=== PATIENT | female | born 1990 | race Caucasian/White ===

== ENCOUNTER 2018-04-26 15:14 | Emergency (ER) | payer OTHER ==
[2018-04-26 16:27] LABS: Urine Blood 1+ (NEG); Urine Glucose NEGATIVE (NEG); Urine Protein NEGATIVE (NEG); Urine Specific Gravity <1.005 (1.005-1.030)
[2018-04-26] MEDS ORDERED: DEXAMETHASONE 10 MG/ML VIAL ONE (17:11)
[2018-04-26] MEDS ORDERED: CLINDAMYCIN 600MG/D5W 600 MG/50 ML BAG IV ONE (17:12)
[2018-04-26] MEDS ORDERED: FENTANYL CITR 100 MCG/2 ML ONE (17:12)
[2018-04-26] MEDS ORDERED: NA CHLORIDE 0.9% 1,000 ML ONE (17:12)
--- NOTE | 2018-04-26 17:37 | RAD REPORT ---
EXAM DESCRIPTION: CT - Soft Tissue Neck W/Contr - 04/26/2018 5:05 pm CLINICAL HISTORY: Neck pain, difficulty swallowing, suspected peritonsillar abscess TECHNIQUE: During dynamic enhancement using 100 milliliters nonionic IV contrast, axial 5 millimeter thick images of the neck were obtained. All CT scans are performed using dose optimization technique as appropriate and may include automated exposure control or mA/KV adjustment according to patient size. FINDINGS: Intracranial portion the examination is unremarkable. Paranasal sinuses are clear. No glob e or orbital content abnormality. Mastoid air cells and middle ears are clear. Left tonsil is grossly abnormal and enlarged at 2.5-3 cm in diameter. In the post oral lateral aspect of the enlarged left tonsil there is a 2.2 x 2.0 x 1.5 centimeter low-density mass that is most like ly a tonsillar abscess. There is localized mass effect on adjacent structures. Airway is deviated to the right. Soft palate is secondarily involved along the left side. Inferior extent reaches the left- side vallecular up. There is minimal asymmetric thickening of the left-side epiglottis. No gross enla rgement of the epiglottis. Normal vascular enhancement is seen. There is no venous thrombosis associated with the tonsillar mass . Soft palate is edematous. Along the posterior inferior margin of the pterygoid musculature near the s kullbase there is a 17 millimeter area of fluid or diminished attenuation. This is seen to track infe riorly and anteriorly, continuing into a 4.4 x 2.4 centimeter thin-walled fluid collection in the sub mandibular region on the left. No thickened rim or enhancement. Moderate-size reactive lymphadenopathy noted in the left neck. No abscess or necrotic lymph node. IMPRESSION: Approximately 2.2 centimeter left peritonsillar abscess along the posterolateral margin of the enlarged tonsil. The abscess and tonsillar edema causes localized mass effect. Superior extent involves the left-side soft palate in the inferior extent reaches the left-side vallecular a with minimal involvement of the left-side epiglottis. The 16 millimeter cystic or low-density mass is seen posterior to the pterygoid musculature near the skullbase extending through a thin channel into the left submandibular region where there is a 4 x 2 centimeter fluid-filled mass. 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 CT findings are not specific for secondary infection of the suspect branchial cleft cyst. Tonsillar a bscesses can develop secondary to complications of branchial cleft cyst and pre-existing branchial cl eft cysts can be enlarged or secondarily infected by a tonsillar abscess.
[2018-04-26 17:38] LABS: Absolute Lymphocytes (CBC) 1.3 K/uL (0.7-4.9); Absolute Monocytes 0.9 K/uL (0.1-1.3); Absolute Neutrophil 10.1 K/uL (1.8-8.0); Basophils % 0.2 % (0-1.3); Eosinophils % 0.1 % (0-4.4); Hematocrit 33.6 % (36.0-45.0); Lymphocytes % 10.7 % (15.3-44.8); MCH 29.6 pg (27.0-35.0); MCV 84.8 fL (80-100); MPV 7.9 fL (7.6-11.3); Monocytes % 7.5 % (3.3-12.3); RBC Red Blood Cell Count 3.97 M/uL (3.86-4.86)
[2018-04-26 17:44] LABS: BUN Blood Urea Nitrogen 8 mg/dL (7-18); Bicarbonate 25 mmol/L (21-32); Glucose Level 97 mg/dL (74-106); Potassium 3.4 mmol/L (3.5-5.1); Sodium Level 135 mmol/L (136-145)
--- NOTE | 2018-04-26 18:41 | ER ---
Nurse's Notes [facility] Name: Kerry Tuttle Age: 27 yrs Sex: Female : 1990 Arrival Date: 04/26/2018 Time: 15:20 Bed 24 Private MD: None, None Diagnosis: Peritonsillar abscess Presentation: 04/26 15:35 Presenting complaint: Patient states: "I went to the ENT office and they think I have a aa5 peritonsillar abscess". Transition of care: patient was not received from another setting of care. Onset of symptoms was May 2018. Risk Assessment: Do you want to hurt yourself or someone else? Patient reports no desire to harm self or others. Initial Sepsis Screen: Does the patient meet any 2 criteria? No. Patient's initial sepsis screen is negative. Does the patient have a suspected source of infection? No. Patient's initial sepsis screen is negative. Care prior to arrival: None. 15:35 Method Of Arrival: Ambulatory aa5 15:35 Acuity: LISA 3 aa5 DIRECTOR FRAUD: 15:36 LMP 04/21/2018 aa5 Historical: - Allergies: 15:36 No Known Allergies; aa5 - PMHx: 15:36 Asthma; aa5 - PSHx: 15:36 None; aa5 - Immunization history:: Adult Immunizations up to date. - Social history:: Smoking status: Patient/guardian denies using tobacco. - Ebola Screening: : No symptoms or risks identified at this time. Screenin:02 Abuse screen: Denies threats or abuse. Denies injuries from another. Nutritional iw screening: No deficits noted. Tuberculosis screening: No symptoms or risk factors identified. Fall Risk None identified. Assessment: 16:01 General: Appears in no apparent distress. Behavior is calm, cooperative. Pain: iw Complains of pain in left jaw. Neuro: Level of Consciousness is awake, alert, obeys commands, Oriented to person, place, time, situation, Moves all extremities. Full function. Cardiovascular: Patient's skin is warm and dry. Respiratory: Airway is patent Respiratory effort is even, unlabored, Breath sounds are clear bilaterally. EENT: Throat is reddened has enlarged tonsils. Musculoskeletal: Range of motion: intact in all extremities. 17:41 Reassessment: Patient and/or family updated on plan of care and expected duration. Pain ss level reassessed. Patient is alert, oriented x 3, equal unlabored respirations, skin warm/dry/pink. pain is 6/10. 18:26 Reassessment: Patient appears in no apparent distress at this time. Patient and/or ss family updated on plan of care and expected duration. Pain level reassessed. Patient is alert, oriented x 3, equal unlabored respirations, skin warm/dry/pink. Respiratory: Airway is patent Trachea midline Respiratory effort is even, unlabored, Respiratory pattern is regular, symmetrical. Derm: Skin is intact, is healthy with good turgor, Skin is pink, warm \\T\\ dry. normal. 20:10 Reassessment: Patient appears in no apparent distress at this time. Patient and/or ss family updated on plan of care and expected duration. Pain level reassessed. Patient is alert, oriented x 3, equal unlabored respirations, skin warm/dry/pink. pt awaiting transfer, Dr Zacarias speaking to pt about transfer. 20:43 Reassessment: report given to SANDIE Bettencourt of [facility]. Patient signed the transfer mg2 form. Vital Signs: 15:36 BP 120 / 80; Pulse 101; Resp 20 S; Temp 99.4(O); Pulse Ox 100% on R/A; Weight 57.61 kg aa5 (R); Height 5 ft. 4 in. (162.56 cm) (R); Pain 6/10; 17:36 BP 128 / 83; Pulse 105; Resp 18; Pulse Ox 100% on R/A; mg2 18:26 BP 120 / 76; Pulse 104; Resp 15; Pulse Ox 100% on R/A; Pain 4/10; ss 19:02 Temp 102.1(O); ss 20:10 BP 124 / 84; Pulse 103; Resp 18; Temp 100.6; Pulse Ox 98% ; mg2 15:36 Body Mass Index 21.80 (57.61 kg, 162.56 cm) aa5 ED Course: 15:20 Patient arrived in ED. mr 15:21 None, None is Private Physician. mr 15:35 Arm band placed on. aa5 15:36 Triage completed. aa5 15:42 [facility]C [facility]. snw 15:42 Abdirahman Zacarias MD is Attending Physician. snw 15:55 Diamante Rg, RN is Primary Nurse. iw 16:24 Radiology exam delayed due to lab results not completed at this time. (BUN/Creatinine). jg6 16:31 Radiology exam delayed due to lab results not completed at this time. (BUN/Creatinine). jg6 16:54 Carmen Alfonso, RN is Primary Nurse. ss 17:05 Soft Tissue Neck W/Contr CT In Process Unspecified. EDMS 17:30 Inserted saline lock: 22 gauge in right antecubital area, using aseptic technique. ss Blood collected. 18:26 Patient has correct armband on for positive identification. Bed in low position. Call ss light in reach. 18:27 No provider procedures requiring assistance completed. Patient transferred, IV remains ss in place. Administered Medications: 17:25 Drug: Decadron - Dexamethasone 10 mg Route: IVP; Site: right antecubital; ss 18:41 Follow up: Response: No adverse reaction ss 17:30 Drug: fentaNYL (PF) 25 mcg Route: IVP; Site: right antecubital; ss 18:41 Follow up: Response: No adverse reaction; Pain is decreased ss 17:35 Drug: NS 0.9% 1000 ml Route: IV; Rate: 125 ml/hr; Site: right antecubital; ss 18:40 Follow up: IV Status: infusion converted to bolus per Dr. Zacarias ss 17:35 Drug: Clindamycin 600 mg Route: IVPB; Infused Over: 30 mins; Site: right antecubital; ss 18:40 Follow up: IV Status: Completed infusion ss 18:39 Not Given (Other Intervention Used): Rocephin - (cefTRIAXone) 1 grams IVPB once over 30 ss mins; (mix in 50 mL NS) 18:41 Drug: NS 0.9% 1000 ml Route: IV; Rate: 1 bolus; Site: right antecubital; ss 18:44 Follow up: IV Status: Infusion continued upon transfer ss 18:44 Drug: Rocephin 1 grams Route: IV; Rate: calculated rate; Site: right antecubital; ss 19:02 Follow up: IV Status: Completed infusion ss 19:02 Drug: Tylenol 650 mg Route: PO; ss 19:02 Not Given (Duplicate Order): Tylenol 650 mg PO once ss Outcome: 18:27 Instructed on the need for transfer. ss 18:41 ER care complete, transfer ordered by MD. cayetano 21:24 Patient left the ED. ss Signatures: Dispatcher [employer] EDMS Abdirahman Zacarias MD MD cha Therrien, Shelly, PENSION CONSULTANT-C PENSION CONSULTANT-Csnw Kaylie Mcdaniel Diamante Rg, RN Padmini Bishop RN RN aa5 Carmen Alfonso RN RN Osbaldo Sykes RN RN mg2 Alejandra Jean Baptiste Corrections: (The following items were deleted from the chart) 20:46 20:10 BP 124 / 84; Pulse 103bpm; Resp 18bpm; Pulse Ox 98%; ss mg2
--- NOTE | 2018-04-26 18:42 | EDPHYS ---
Physician Documentation [facility] Name: Kerry Tuttle Age: 27 yrs Sex: Female : 1990 Arrival Date: 04/26/2018 Time: 15:20 Bed 24 Private MD: None, None ED Physician Abdirahman Zacarias HPI: 04/26 16:41 This 27 yrs old Female presents to ER via Ambulatory with complaints of Sore snw Throat. 16:41 The patient presents with sore throat, dysphagia, of solids. The patient describes snw throat pain as constant. Onset: The symptoms/episode began/occurred suddenly, last night. Severity of symptoms: At their worst the symptoms were moderate, severe. Modifying factors: The symptoms are alleviated by nothing, the symptoms are aggravated by swallowing, Patient's oral intake status: unable to tolerate foods, limited fluid intake. Associated signs and symptoms: The patient has no apparent associated signs or symptoms. The patient has not experienced similar symptoms in the past. The patient has been recently seen by a physician: an ENT specialist, with similar presenting complaints, and was sent to the [facility] Emergency Department for further evaluation. 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 - Social history:: Smoking status: Patient/guardian denies using tobacco. - Ebola Screening: : No symptoms or risks identified at this time. ROS: 16:40 Constitutional: Negative for fever, chills, and weight loss, Eyes: Negative for injury, snw pain, redness, and discharge. 16:40 Neck: Negative for injury, pain, and swelling, Cardiovascular: Negative for chest pain, palpitations, and edema, Respiratory: Negative for shortness of breath, cough, wheezing, and pleuritic chest pain, Abdomen/GI: Negative for abdominal pain, nausea, vomiting, diarrhea, and constipation, Back: Negative for injury and pain, : Negative for injury, bleeding, discharge, and swelling, MS/Extremity: Negative for injury and deformity, Skin: Negative for injury, rash, and discoloration, Neuro: Negative for headache, weakness, numbness, tingling, and seizure. 16:40 ENT: Positive for sore throat, voice changes, unable to swallow solids, able to take children's motrin this a.m.. Exam: 16:32 Constitutional: This is a well developed, well nourished patient who is awake, alert, snw and in no acute distress. 16:32 Eyes: Pupils equal round and reactive to light, extra-ocular motions intact. Lids and lashes normal. Conjunctiva and sclera are non-icteric and not injected. Cornea within normal limits. Periorbital areas with no swelling, redness, or edema. Chest/axilla: Normal chest wall appearance and motion. Nontender with no deformity. No lesions are appreciated. Respiratory: Lungs have equal breath sounds bilaterally, clear to auscultation and percussion. No rales, rhonchi or wheezes noted. No increased work of breathing, no retractions or nasal flaring. Abdomen/GI: Soft, non-tender, with normal bowel sounds. No distension or tympany. No guarding or rebound. No evidence of tenderness throughout. Back: No spinal tenderness. No costovertebral tenderness. Full range of motion. Skin: Warm, dry with normal turgor. Normal color with no rashes, no lesions, and no evidence of cellulitis. MS/ Extremity: Pulses equal, no cyanosis. Neurovascular intact. Full, normal range of motion. Neuro: Awake and alert, GCS 15, oriented to person, place, time, and situation. Cranial nerves II-XII grossly intact. Motor strength 5/5 in all extremities. Sensory grossly intact. Cerebellar exam normal. Normal gait. Psych: Awake, alert, with orientation to person, place and time. Behavior, mood, and affect are within normal limits. 16:32 Head/face: Noted is swelling, that is moderate, of the left jaw. 16:32 ENT: External ear(s): are unremarkable, Ear canal(s): are normal, TM's: are normal, Nose: is normal, Mouth: is normal, Oral mucosa: pink and intact, Posterior pharynx: swelling, erythema, peritonsillar mass, is noted on left, Voice: is muffled. 16:32 Cardiovascular: Rate: tachycardic, Rhythm: regular, Heart sounds: normal. Vital Signs: 15:36 BP 120 / 80; Pulse 101; Resp 20 S; Temp 99.4(O); Pulse Ox 100% on R/A; Weight 57.61 kg aa5 (R); Height 5 ft. 4 in. (162.56 cm) (R); Pain 6/10; 17:36 BP 128 / 83; Pulse 105; Resp 18; Pulse Ox 100% on R/A; mg2 18:26 BP 120 / 76; Pulse 104; Resp 15; Pulse Ox 100% on R/A; Pain 4/10; ss 19:02 Temp 102.1(O); ss 20:10 BP 124 / 84; Pulse 103; Resp 18; Temp 100.6; Pulse Ox 98% ; mg2 15:36 Body Mass Index 21.80 (57.61 kg, 162.56 cm) aa5 MDM: 16:00 Patient medically screened. snw 17:51 Data reviewed: vital signs, nurses notes. Data interpreted: Pulse oximetry: on room air snw is 100 %. Interpretation: normal. Counseling: I had a detailed discussion with the patient and/or guardian regarding: the historical points, exam findings, and any diagnostic results supporting the discharge/admit diagnosis, the presence of at least one elevated blood pressure reading (>120/80) during this emergency department visit, lab results, radiology results, the need to transfer to another facility, [facility] does not immediately have the required specialist. 04/26 16:14 Order name: Urine Dipstick--Ancillary (enter results); Complete Time: 16:30 bd 04/26 16:54 Order name: CBC with Diff; Complete Time: 17:41 snw 04/26 16:54 Order name: Chem 7; Complete Time: 17:50 snw 04/26 16:54 Order name: Blood Culture* snw 04/26 16:18 Order name: Soft Tissue Neck W/Contr CT; Complete Time: 17:41 snw 04/26 19:02 Order name: NPO; Complete Time: 19:02 ss Administered Medications: 17:25 Drug: Decadron - Dexamethasone 10 mg Route: IVP; Site: right antecubital; ss 18:41 Follow up: Response: No adverse reaction ss 17:30 Drug: fentaNYL (PF) 25 mcg Route: IVP; Site: right antecubital; ss 18:41 Follow up: Response: No adverse reaction; Pain is decreased ss 17:35 Drug: NS 0.9% 1000 ml Route: IV; Rate: 125 ml/hr; Site: right antecubital; ss 18:40 Follow up: IV Status: infusion converted to bolus per Dr. Zacarias ss 17:35 Drug: Clindamycin 600 mg Route: IVPB; Infused Over: 30 mins; Site: right antecubital; ss 18:40 Follow up: IV Status: Completed infusion ss 18:39 Not Given (Other Intervention Used): Rocephin - (cefTRIAXone) 1 grams IVPB once over 30 ss mins; (mix in 50 mL NS) 18:41 Drug: NS 0.9% 1000 ml Route: IV; Rate: 1 bolus; Site: right antecubital; ss 18:44 Follow up: IV Status: Infusion continued upon transfer ss 18:44 Drug: Rocephin 1 grams Route: IV; Rate: calculated rate; Site: right antecubital; ss 19:02 Follow up: IV Status: Completed infusion ss 19:02 Drug: Tylenol 650 mg Route: PO; ss 19:02 Not Given (Duplicate Order): Tylenol 650 mg PO once ss Disposition: 18:37 Co-signature as Attending Physician, Abdirahman Zacarias MD I agree with the assessment and cayetano plan of care. Disposition: 04/26/18 18:[address] [facility]. Diagnosis is Peritonsillar abscess. - Reason for transfer: Higher level of care. - Accepting physician is to [facility]. - Condition is Stable. - Problem is new. - Symptoms have improved. Signatures: Dispatcher [employer] EDME Abdirahman Zacarias MD MD cha Therrien, Shelly, CASING MACHINE OPERATOR-C CASING MACHINE OPERATOR-Rajendraw Padmini Goode, RN RN aa5 Carmen Alfonso RN RN ss Corrections: (The following items were deleted from the chart) 16:14 16:06 URINE DIPSTICK--ANCILLARY+U.LAB.BRZ ordered. EDME EDMS 16:18 15:57 Group A Streptococcus Rapid Sc+BA.LAB.BRZ ordered. [facility] EDMS 21:24 18:41 04/26/2018 18:[address] [facility]. Diagnosis is ss Peritonsillar abscess. Reason for transfer: Higher level of care. Accepting physician is to [facility]. Condition is Stable. Problem is new. Symptoms have improved. cayetano
[2018-04-26] MEDS ORDERED: CEFTRIAXONE/SWI 1gm 1 GM/10 ML SYR ONE (18:50)
[2018-04-26] MEDS ORDERED: IBUPROFEN 200 MG TAB PO ONE (19:01)
[2018-04-26] MEDS ORDERED: ACETAMINOPHEN 160 MG/5 ML UCUP ONE (19:05)
== END 2018-04-26 21:24 | disposition short-term general hospital (02) ==
LOC: ER 15:14
DX: J36 Peritonsillar abscess (principal)
CPT/HCPCS: 36415; 70491; 80048; 81003; 85025; 87040; 96365; 96367; 96375; 99284; J0696; J1100; J3010; J7030; Q9967